=== PATIENT | male | born 1975 | race African-American/Black ===

== ENCOUNTER 2024-11-28 19:00 | Inpatient (IN) | payer BC, OTHER ==
[~2024-11-28] VITALS: Ht 190.5 cm; Wt 139.7 kg
[2024-11-28 19:33] LABS: MEAN PLATELET VOLUME 7.9 FL (7.4-10.4); RED CELL DISTRIBUTION WIDTH 15.1 % (11.5-14.5)
--- NOTE | 2024-11-28 19:39 | Physician Documentation ---
History of Present Illness ~ General Chief Complaint: Multiple Medical Complaints Stated Complaint: HEADACHE,LEG SWELLING Time Seen by MD: 20:52 OK to notify your PCP?: Yes Source: patient, RN/MD, RN notes reviewed, old records Mode of Arrival: POV History of Present Illness Initial Comments This is a 49-year-old male with history of migraines who presents with one-week of persistent headache, new and increasing lower extremity swelling, and development of rash to his lower extremities today. This patient was brought into bed 12. Patient thank you for that is efforts helping RRR I finding calm down one of the other two any ideas of the fire any patient states he has been having multiple were ablated instead has been weird. About five six days he has been having severe headache. 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 Denies any COVID symptoms other than the headache. Also in the last five six days he is having worsening lower extremity edema. Denies any PND or orthopnea no shortness of breath. Then in the last 12 hours he developed some nodules nontender blotching to the lower extremity in a few locations. Nonblanching no petechiae. But what brought him in was he felt weird at 3:00 p.m. today after work. This was at rest. He has a heaviness or pressure nonradiating decided to come in for evaluation. He has had a cardiac catheterization in February 2024 back [place] when he had a cardiac event. It was unclear. He has hypertension treated with hydralazine otherwise no other cardiac events. His pain is heaviness it is 6/7 out of 10 there was dizziness or diaphoresis. He now states his mostly resolved. Past medical history hypertension hydrocephalus congenital, brain bleed secondary to trauma in 11/2015, chronic renal insufficiency Past surgical history, bilateral knee surgery meniscus repairs, wisdom teeth, lipoma, Social history denies tobacco alcohol or recreational drugs, On a sodium restricted diet to help with leg swelling Medication Reconciliation Allergies: Uncoded Allergies: NSAIDS (Allergy, Unknown, 11/28/24) Scheduled Hydralazine Hcl* (Apresoline*), 25 MG PO Q6H, (Reported) Solifenacin Succinate (Vesicare), 1 TAB PO DAILY, (Reported) Scheduled PRN Acetaminophen (Tylenol), 1-2 TAB PO QID PRN PRN for pain or fever, (Reported) Discontinued Medications Hydralazine Hcl* (Apresoline*), 25 MG PO Q6H, (Reported) Discontinued Reason: Other Review of Systems All Other Systems at this time: Reviewed and Negative ROS As stated above in the HPI, otherwise all systems are reviewed and negative. Physical Exam Physical Exam Vital Signs: RN Vital Signs have been reviewed: Yes, Temperature: 98.2, Heart Rate: 86, Respiratory Rate: 16, BP: 172/111, Pulse Oximetry: 97 Oxygen Flow Rate: 0 Physical Exam VITALS: Reviewed and as above. GENERAL: Alert, nontoxic appearing, no apparent distress. HEENT: RESPIRATORY: No increased work of breathing, no respiratory distress, speaking in full clear sentences General: The patient is well developed, well nourished, nontoxic appearing and is in no acute distress. Uncomfortable appearing Skin: [place], warm and dry small circular nonblanching nontender lesions in the dependent extremities bilaterally three or four lesions per leg. Red erythematous. HEENT: Head was normocephalic and atraumatic. Eyes - pupils equal, round, madelyn ctive to light and accommodation. Extraocular movements were intact. Conjunctivae were nonicteric. The mouth and oropharynx were clear with moist mucous membranes. Neck: Supple and nontender. There was no jugular venous distention, lymphadenopathy, thyromegaly Chest: Clear to auscultation bilaterally without wheezes, rales or rhonchi. No accessory muscle use. Heart: Rate regular and rhythmic. S1, S2. No murmurs. Palpation of the chest wall was normal. Abdomen: Soft, nontender and nondistended. Positive bowel sounds. No guarding or rebound. Extremities: No cyanosis, clubbing or edema. The patient moves all extremities. Pulses were equal and symmetric. Neurologic: Motor sensory grossly intact Psychologic: The patient was oriented to person, place and time. The patient demonstrated appropriate judgement and insight. Progress Progress Note 10:45 p.m. discussed the case with the hospitalist. They recommended blue daina consultation, neurosurgical consultation They were informed that the findings are chronic although he does have a new onset headache for the last five days. There was no intracranial bleeds. Prior studies from [place] reviewed and are unchanged per report but there was no dire ct comparison. Neurosurgical consultation is not indicated at this time. Patient was started on a heparin drip. Results/Orders Reviewed/noted all lab results: Yes Results/Orders Orders - ABRAHAM PATTON MD Chest,Single View (11/28/24 19:45) Monitor (11/28/24 19:12) Saline Lock (11/28/24 19:12) Oxygen (11/28/24 19:12) BMP (11/28/24 19:12) PBNP (11/28/24 19:12) Electrocardiogram (11/28/24 19:12) Ct Head (11/28/24 21:05) Covid19 Binax Poc Result Entry (11/28/24 21:07) Please Get Medical Records (11/28/24 21:24) C-Reactive Protein (11/28/24 19:20) MG (11/28/24 19:20) Page Hospitalist (11/28/24 22:25) Fill Out Med Reconciliation (11/28/24 22:25) Carvedilol Tablet (Coreg Tablet) (11/28/24 22:35) Sundance Prov.Neuro Consult (11/28/24 22:35) Normal Saline 1000ml (0.9% Sodium Chlori (11/28/24 22:45) Hgb A1c (11/28/24 19:20) Completed Orders - ABRAHAM PATTON MD Chest,Single View (11/28/24 19:45) Cbc/Diff (11/28/24 19:12) Hs Troponin I W Calculations (11/28/24 19:12) Hs Troponin I W Calculations (11/28/24 21:12) Hs Troponin I W Calculations (11/28/24 22:12) Pt Inr (11/28/24 21:02) PTT (11/28/24 21:02) Aspirin 81mg Chew Tablet (Aspirin 81mg C (11/28/24 21:05) Nitroglycerin 0.4mg/Hr Patch (Nitro-Dur (11/28/24 21:05) Ct Head (11/28/24 21:05) Procalcitonin (11/28/24 21:05) ESR (11/28/24 21:05) Normal Saline 1000ml (0.9% Sodium Chlori (11/28/24 22:45) Medications Received in ER Medications (Trade) Dose Ordered Sig/Stephanie Route PRN Reason Start Time Stop Time Status Last Admin Dose Admin (aspirin 81MG chew tablet) 324 mg ONCE ONCE PO 11/28/24 21:05 11/28/24 21:06 DC 11/28/24 21:09 324 MG (Nitro-Dur 0.4mg/ hour Patch) 1 patch ONCE ONCE TD 11/28/24 21:05 11/28/24 21:06 DC 11/28/24 21:15 1 PATCH (Coreg tablet) 3.125 mg ONCE PO 11/28/24 22:35 11/28/24 23:03 3.125 MG (0.9% sodium chloride (NS) 1000ml IV soln) 500 ml ONCE ONCE IVB 11/28/24 22:45 11/28/24 22:46 DC 11/28/24 23:10 500 ML Sodium Chloride 1,000 ml @ 150 mls/hr Q6H40M ONCE IV 11/28/24 22:45 11/29/24 05:24 11/28/24 23:05 150 MLS/HR Vital Signs 11/28/24 11/28/24 11/28/24 11/28/24 19:07 20:55 20:55 22:06 Temp 98.2 98.2 Pulse 86 76 75 Resp 16 13 11 17 B/P (MAP) 172/111 162/98 (119) 152/98 (116) Pulse Ox 97 98 O2 Flow Rate 0 0 11/28/24 23:21 Temp 98.2 Pulse 66 Resp 12 B/P (MAP) 134/94 (107) Pulse Ox 96 O2 Flow Rate 0 Laboratory Tests Test 11/28/24 19:20 11/28/24 21:11 11/28/24 21:28 11/28/24 22:28 White Blood Count 7.9 Red Blood Count 4.99 Hemoglobin 15.1 Hematocrit 45.1 Mean Corpuscular Volume 90.3 Mean Corpuscular Hemoglobin 30.3 Mean Corpuscular Hemoglobin Concent 33.6 Red Cell Distribution Width 15.1 H Platelet Count 394 Mean Platelet Volume 7.9 Neutrophils (%) (Auto) 65.2 Lymphocytes (%) (Auto) 24.7 Monocytes (%) (Auto) 8.5 Eosinophils (%) (Auto) 1.0 Basophils (%) (Auto) 0.6 Neutrophils # (Auto) 5.2 Lymphocytes # (Auto) 2.0 Monocytes # (Auto) 0.7 Eosinophils # (Auto) 0.1 Basophils # (Auto) 0.1 CBC Comment Prothrombin Time 10.7 INR International Normalized Ratio 1.0 Activated Partial Thromboplast Time 29 Coagulation Comments Sodium Level 142 Potassium Level 3.8 Chloride Level 108 H Carbon Dioxide Level 30.1 Anion Gap 4 L Blood Urea Nitrogen 15 Creatinine 1.20 H Estimated GFR/1.73 m2 65 BUN/Creatinine Ratio 12.5 Glucose Level 105 H Calcium Level 9.3 Magnesium Level 2.0 Troponin I High Sensitivity 357 *H 375 *H 352 *H C-Reactive Protein 0.21 Pro-B-Type Natriuretic Peptide < 30 Albumin 3.7 Procalcitonin < 0.05 Chemistry Comments SARS-CoV-2 Antigen (Rapid) Negative Erythrocyte Sedimentation Rate 3 Troponin I High Sens Percent Delta 5 6 Troponin I Hi Sens Absolute Change 18 -23 Re-Evaluation Re-Evaluation : Re-Evaluation: Improved Progress Patient was seen and examined. Patient is given reassurance. Patient had a CT scan of the head which showed no new findings firm CT report the has at bedside. Cath reports has been requested but also at bedside per . Patient's blood pressure was treated with nitroglycerin. Laboratory work shows a normal CBC normal sed rate. Patient had some lesions on the leg which were unusual etiology unclear. Coagulation within normal limits. Patient's creatinine is slightly elevated at 1.20 will be hydrated. Troponins 357 and 375 patient is started on a heparin drip given aspirin. Patient's headache with the aspirin has subsided significantly. COVID is negative. Patient's blood pressure is also slightly improved. Chest x-ray shows no cardiomegaly. Patient's proBNP is negative. senior data scientist continuous monitor interpretation shows normal sinus rhythm, heart rate 80s, no ectopy, normal, my interpretation. Pulse oximetry monitor interpretation shows normal oxygenation at 98% room air, normal, my interpretation. EKG/XRAY/CT/US/VASC/MRI EKG : Intepreting Monitor?: Yes Additional Comment 7:16 p.m. EKG shows normal sinus rhythm heart rate 82 with good R-wave progression normal axis normal intervals nonspecific ST changes QTC 438 Chest X-Ray : Interpreted By: both Additional Comments CHEST RADIOGRAPH Indication: CP Technique: Single frontal view of the chest was obtained Comparison: None FINDINGS: Lines and Tubes: None Lungs: No focal consolidation. Pleura: No effusion. No pneumothorax. Cardiomediastinal contours: Unremarkable Bones: No acute osseous abnormality. IMPRESSION: No acute cardiopulmonary disease. Electronically Signed by:UMA CARLOS DO CT : CT: head With Contrast?: No Impression Procedure: CT CT HEAD [facility] Study Date and Requested Time: 11/28/2024 09:27 PM History: aloc Comparison: None Dose: CTDI: 65.75 mGy DLP: 1272.96 mGycm Technique: Multiplanar images obtained through the brain without intravenous contrast. Findings: Severe hydrocephalus with dilatation of the lateral and 3rd ventricles and normal 4th ventricle. No pineal region mass is noted. Postsurgical changes of endoscopic 3rd ventriculostomy is noted. No obvious subependymal edema is noted on CT. No hemorrhages, masses, midline shift, herniation or cytotoxic edema following a large vascular territory. No intra-axial or extra-axial fluid collections. There is remodeling of the sella with normal pituitary gland noted.. The cerebellar tonsils are in normal position. The cerebellum is unremarkable. The orbits and globes are unremarkable. Mucoperiosteal thickening of the right maxillary sinus. Otherwise, the paranasal sinuses and mastoids are clear. There are no worrisome calvarial lesions. Impression: Severe noncommunicating hydrocephalus with dilatation of the lateral and 3rd ventricles and Postsurgical changes of endoscopic 3rd ventriculostomy. No obvious subependymal edema on CT. No prior imaging for comparison. MRI should be considered for further evaluation. Electronically Signed by:UMA CARLOS DO Date & Time: 11/28/242153 Heart Score: Heart Score Response (Comments) Value History Slightly Suspicious 0 EKG Repolarization Disturb 1 Age 45-64 1 Risk Factors >3 or Hx ASHD 2 Troponin >3 x's Normal limit 2 Total 6 Medical Decision Making Findings MSE performed in triage and patient returned to ED lobby by nursing staff to await available ED room Departure Disposition: ADMITTED INPATIENT Admitted to Inpatient Unit: yes, to hospitalist Admission Level of Care: PCU with Tele Impression: Primary Impression: NSTEMI (non-ST elevated myocardial infarction) Additional Impression: Congenital hydrocephalus Condition: Guarded Referrals: NO PRIMARY CARE PROVIDER (PCP) Education Educated: Patient, Family Educated regarding: diagnosis, need for follow up Additional Comment Additional Comment CT scan 12/09/2015, 12/01/2015, 11/30/2015 Last CAT scan shows severe ventriculomegaly is again seen compatible with hydrocephalus and is unchanged extracranial structures remained normal Ramona Ely Signature Scribe Signature: x Attestation: The note accurately reflects work and decisions made by me.Abraham Patton MD 11/28/24 22:30 Addendum 2349: Attending physician, Dr. Patton spoke to [facility]; patient's code for staying here in the hospital is [phone]. Also found that in 2020 patient had a cardiac catheterization which showed 20% occlusion, but was otherwise normal. Patient also had echocardiogram which showed 30% LVEF. Studies are at the bedside and being sent. Scribed for Abraham Patton MD by Veronica Burgess. 11/28/24 23:56 SHABANA JOLLEY Nov 28, 2024 19:39 ABRAHAM PATTON MD Nov 28, 2024 21:07
--- NOTE | 2024-11-28 19:54 | RADIOLOGY REPORT ---
CHEST RADIOGRAPH Indication: CP Technique: Single frontal view of the chest was obtained Comparison: None FINDINGS: Lines and Tubes: None Lungs: No focal consolidation. Pleura: No effusion. No pneumothorax. Cardiomediastinal contours: Unremarkable Bones: No acute osseous abnormality. IMPRESSION: No acute cardiopulmonary disease.
[2024-11-28 19:55] LABS: CREATININE 1.20 MG/DL (0.60-1.10); PRO BRAIN NATRIURETIC PEPTIDE < 30 PG/ML (0-125); TOTAL CARBON DIOXIDE 30.1 MMOL/L (24-32); eGFR 65 ML/MIN
[2024-11-28 21:46] LABS: APTT 29 SECONDS (22-32); INR 1.0 INR
--- NOTE | 2024-11-28 21:56 | RADIOLOGY REPORT ---
Procedure: CT CT HEAD [facility] Study Date and Requested Time: 11/28/2024 09:27 PM History: aloc Comparison: None Dose: CTDI: 65.75 mGy DLP: 1272.96 mGycm Technique: Multiplanar images obtained through the brain without intravenous contrast. Findings: Severe hydrocephalus with dilatation of the lateral and 3rd ventricles and normal 4th ventricle. No p ineal region mass is noted. Postsurgical changes of endoscopic 3rd ventriculostomy is noted. No obvi ous subependymal edema is noted on CT. No hemorrhages, masses, midline shift, herniation or cytotoxic edema following a large vascular terr itory. No intra-axial or extra-axial fluid collections. There is remodeling of the sella with normal pituitary gland noted.. The cerebellar tonsils are in no rmal position. The cerebellum is unremarkable. The orbits and globes are unremarkable. Mucoperiosteal thickening of the right maxillary sinus. Othe rwise, the paranasal sinuses and mastoids are clear. There are no worrisome calvarial lesions. Impression: Severe noncommunicating hydrocephalus with dilatation of the lateral and 3rd ventricles and Postsurgi missy changes of endoscopic 3rd ventriculostomy. No obvious subependymal edema on CT. No prior imaging for comparison. MRI should be considered for further evaluation.
[2024-11-28] MEDS ORDERED: SOLI10TA2 PO (22:36)
[2024-11-28] MEDS ORDERED: HYDR25TA90 PO (22:36)
[2024-11-28] MEDS ORDERED: ACET-2119 PO (22:36)
[2024-11-28] MEDS: normal saline 1000ml 1,000 ML IV ONE (23:05)
[2024-11-28] MEDS: normal saline 1000ML IV soln IVB ONE (23:10)
[2024-11-28] MEDS ORDERED: potassium Cl 20 mEq SR tablet PO PRN (23:35)
[2024-11-28] MEDS ORDERED: magnesium hydroxide 30ml (MOM) UD suspension PO PRN (23:35)
[2024-11-28] MEDS ORDERED: magnesium sulf-water 4G/100mL 100 ML IV PRN (23:35)
[2024-11-28] MEDS ORDERED: potassium Cl 40MEQ/1/2NS 520ml 520 ML IV PRN (23:35)
[2024-11-28] MEDS ORDERED: mag hydrox/Alum hydrox/simeth 30ml oral suspension PO PRN (23:35)
[2024-11-28] MEDS ORDERED: magnesium Cl slow-release 64mg tablet PO PRN (23:35)
[2024-11-28] MEDS ORDERED: magnesium sulf-water 2g/50mL 50 ML IV PRN (23:35)
[2024-11-28] MEDS ORDERED: ondansetron/PF 4mg/2ml inj IV PRN (23:35)
--- NOTE | 2024-11-28 23:41 | [facility] CONSULT REPORT ---
[facility] Procedure Note [facility] Procedure Note Consult [facility] # Demographics Consult Type: General Neurology Patient Location: Emergency Room First Name: ALEXANDER Last Name: [facility] Date of : 1975 Age: 49 Gender: Male Facility: [facility] Time of Initial Page (): 11/28/2024 23:03 First Contact with Site (): 11/28/2024 23:04 # HPI Chief Complaint: - headache History: 49 yo with congenital hydrocephalus and migraine p/w persistent headache and leg swelling. He reported headache is frontal throbbing and pressure likely. He had similar bouts of headache previously and was seen at . He was told this is related to his hydrocephalus. He denied photophobia or nausea. SBP>200. # Exam Mental Status: - awake - alert and oriented x 3 - follows commands Language: - normal speech - no aphasia - no dysarthria Cranial Nerves: - extra ocular movements intact - no facial droop - normal facial sensation Motor: - normal strength - normal bulk - no drift Sensory: - normal sensation Cerebellar: - normal cerebellar exam # ROS Additional: - complete review of systems otherwise negative # PMH-- Past Medical History: - hypertension - chronic kidney disease # Data Head CT: Dilated 3rd and lateral ventricles # Assessment Impression: - pressure headache 2/2 hydrocephalus vs HTN # Plan Imaging: (urgency: routine): - MRI Brain with AND without contrast Medication: Naproxen 500 mg TID prn Other: - If patient has any neurological deterioration please call me back immediately - I have discussed my recommendations with the referring provider - Compare prior CT and MRI from OSH by radiology, if hydrocephalus is worse, then need neurosurgery consult # Logistics Attestation of consult completion: The patient is located at: [facility]. Facility staff participated in the visit. I performed this telemedicine visit from my offsite office utilizing interactive 2 way audio and visual telecommunication technology at the request of the onsite emergency room provider. Total time spent in telemedicine encounter: I spent 21 minutes reviewing clinical data and/or imaging, obtaining history, examining the patient, communicating with the onsite care team, and in preparation of this report. # Demographics First Name: ALEXANDER Last Name: [facility] Facility: [facility] Electronically signed at 11/28/2024 23:40 () by Neo Way MD Neuro Consult Order placed for: Yes NEO WAY MD Nov 28, 2024 23:41
[2024-11-28] MEDS: HEPARIN DRIP-CARDIAC**PHARMACIST-TO-DOSE IV ONE (23:45)
--- NOTE | 2024-11-28 23:54 | HISTORY AND PHYSICAL-Residence ---
History & Physical Providers to CC Resident Creating Document: SHARI MACKEY, RES ~ History of Present Illness Reason for Admit\Complaint: Elevated troponins History of Present Illness This is a 49-year-old with history of congenital hydrocephalus, migraine, CAD, hypertension, CKD, sleep apnea, came to the ER with a chief complaint of b ilateral lower extremity edema which started about one week ago, slowly progressive. Also has circular rate color blotches on Lovenox which were noticed today by his . Denied any shortness of breath, orthopnea, paroxysmal nocturnal dyspnea. After he got off work at 3:00 p.m. today, he felt something weird in his chest, something pressure-like, nonradiating. Denied any palpitations, lightheadedness or diaphoresis. He had a cardiac catheterization in February 2024 in [facility] in [place] by Dr. Frederick, no stents were placed at that time. He also has been having headache for the last one week, was taking Tylenol and NSAID. Denies any nausea, vomiting, blurry vision, chest pain, decreased urine output. He has history of congenital hydrocephalus, CT head showed severe hydrocephalus, I reviewed the CT head reports in 2022 which showed similar findings. The patient's neurologist did not recommend a shunt as it is chronic. 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 Migraines Hypertension Past Surgical History Surgical History Comment Bilaterally surgery, meniscal repair Lipoma removal on back Past Social History Social History Comment Denies any history of smoking Occasional alcohol use No drug use Lives with his Works as a security in [employer] ROS All Other Systems: Reviewed and Negative Constitutional: Denies: no symptoms reported, see HPI, chills, diaphoresis, fever, malaise, weakness, other Eyes: Denies: no symptoms reported, see HPI, pain, discharge, blurred vision, double vision, itching, photophobia, redness, tearing, other ENT: Denies: no symptoms reported, see HPI, ear pain, ear bleeding, ear discharge, hearing loss, ear ringing, nose pain, nose bleeding, nose congestion, nose discharge, throat pain, throat swelling, voice change, mouth pain, mouth bleeding, mouth swelling, other Respiratory: Denies: no symptoms reported, see HPI, cough, orthopnea, shortness of breath, SOB with exertion, SOB at rest, stridor, wheezing, hemoptysis, pain with breathing, other Cardiovascular: Reports: see HPI Gastrointestinal: Denies: no symptoms reported, see HPI, abdomen distended, abdominal pain, nausea, vomiting, diarrhea, constipated, melena, hematemesis, hematochezia, rectal bleeding, rectal pain, dysphagia, poor appetite, poor fluid intake, other Genitourinary: Denies: no symptoms reported, see HPI, burning, discharge, dysuria, frequency, flank pain, hematuria, incontinence, pain, decreased urine output, urgency, other Neurological: Reports: headache Musculoskeletal: Denies: no symptoms reported, see HPI, pain, swelling, back pain, gout, joint pain, joint swelling, muscle pain, muscle swelling, muscle stiffness, neck pain, other Exam Vitals: Vital Signs Date Time Temp Pulse Resp B/P (MAP) Pulse Ox O2 Delivery O2 Flow Rate FiO2 11/28/24 23:21 98.2 66 12 134/94 (107) 96 0 General: General:, alert and awake, not in acute distress Head: Normocephalic, atraumatic Eyes: Pupils- 3mm, reacting to light, conjunctiva- anicteric Neck: Supple, no lymphadenopathy, no carotid bruit Respiratory: No use of accessory muscles of respiration, Bilateral normal vesicular breath sounds heard. No wheeze, rhochi or creps Cardiac: S1-S2 heard, rhythm regular, no murmur Abdomen: non distended, no tenderness, no organomegaly, bowel sounds - heard, \ Extremities: no clubbing, 2+ pedal edema, no deformities, peripheral pulses - 2+ Skin: warm and dry, no rash, no purpura, red circular blotches on the lower extremity, no purpura, nonblanching Neuro: Awake, alert, oriented, speech is normal Cranial nerve exam-normal visual field, normal extraocular movements, normal facial sensations and facial movements, normal hearing, uvula in midline, tongue protrusion and shoulder shrugging normal Strength-normal bulk, normal tone, bilateral upper and lower extremity 5/5, deep tendon reflexes-2, absent Babinski, absent pronator drift Cerebellar-normal finger-nose test Gait-normal Diagnostic Data Last Recorded Lab Results: 11/28/24191911/28/241919 Diagnostic Data: Laboratory Tests Test 11/28/24 19:20 Prothrombin Time 10.7 SECONDS (9.0-12.0) INR International Normalized Ratio 1.0 INR Activated Partial Thromboplast Time 29 SECONDS (22-32) Coagulation Comments Advance Care Planning Advanced Care plannin - 30 Minutes (I spent 17 minutes in discussing various resuscitate measures, the patient chose to be full code) Additional Plan Assessment This is a 49-year-old with history of congenital hydrocephalus, migraine, CAD, hypertension, CKD, sleep apnea, came to the ER with a chief complaint of b ilateral lower extremity edema which started about one week ago, slowly progressive. Also has a elevated troponins. Patient is being admitted for possible NSTEMI and possible CHF. Plan Troponinemia History of CAD Troponin trend 357, 375,[address]-T changes Received aspirin 324 in the ER, Started on aspirin 81 mg and atorvastatin 40 mg, carvedilol 3.125 b.i.d. daily He had a cardiac catheterization in February 2024, no stent was placed at the time Lexiscan ordered Consult cardiology morning Heart healthy diet Possible underlying CHF Patient has bilateral lower extremity edema ProBNP in the normal range Echo ordered Also ordered bilateral lower leg venous ultrasound. Lasix 20 mg IV daily History of congenital hydrocephalus Migraine CT head showed severe hydrocephalus, reviewed the CT from 2022 also showed similar findings Tele neuro consult daughter and place Tylenol PRN CKD stage 3 Creatinine 1.2, at baseline Continue to monitor Hypertension Blood pressure was elevated at the time of admission currently in the normal range Continue patient's home medication once the med rec is done Code status: Full code DVT prophylaxis: Heparin Diet: Heart healthy diet Line/tubes: Peripheral IV line Status: Guarded Shari mackey M.D PGY2 Plan reviewed with bedside team. Patient seen through remote audiovisual assessment through HIPAA compliant setup. All labs, flowsheets, and images reviewed Cumulative nonprocedural care time spent in directed patient care = 30 min Date of Service: Nov 28, 2024 Billing Provider: HENNA FLOWERS MD, PRAVAHIKA, RES Nov 28, 2024 23:54 HENNA FLOWERS MD Nov 29, 2024 06:14
[2024-11-29] VITALS (14 sets, daily range): BP systolic 102–146; BP diastolic 65–104; PULSE 65–91; RESP 11–18; TEMP 97.6–98.1; O2SAT 96–99
[2024-11-29] MEDS ORDERED: heparin 25,000 UNIT/250ml bag 250 ML IV PRN
[2024-11-29] MEDS ORDERED: heparin 10,000 units/1 ML INJ IV PRN
[2024-11-29] MEDS ORDERED: heparin 10,000 units/1 ML INJ IV ONE
[2024-11-29] MEDS ORDERED: aminophylline 250mg/10ml inj. IV PRN (00:15)
[2024-11-29] MEDS ORDERED: metoprolol tartrate 1mg/ml inj IV PRN (00:15)
[2024-11-29] MEDS: MESSAGE TO NURSING IV ONE (00:29)
[2024-11-29] MEDS: heparin, porcine 5000 units/ml vial SQ SCH (00:39)
[2024-11-29] MEDS: furosemide 10 MG/1 ML 10ml inj IV SCH (01:09)
[2024-11-29 06:28] LABS: MEAN PLATELET VOLUME 8.0 FL (7.4-10.4); RED CELL DISTRIBUTION WIDTH 15.0 % (11.5-14.5)
[2024-11-29 06:50] LABS: CHOL/HDL RATIO 3.0 (0.00-4.99); CREATININE 1.31 MG/DL (0.60-1.10); LDL CHOLESTEROL 73 MG/DL (50-100); TOTAL CARBON DIOXIDE 27.7 MMOL/L (24-32); eCRCL 83 ML/MIN; eGFR 71 ML/MIN
--- NOTE | 2024-11-29 06:50 | ELECTROCARDIOGRAPH REPORT ---
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 Abraham Barrera Measurements Intervals [place] Rate: 82 P: 42 SD: 163 QRS: 9 QRSD: 96 T: 42 QT: 375 QTc: 438 Interpretive Statements Sinus rhythm Borderline T wave abnormalities Electronically Signed On 11-30-2024 0:29:[address] Abraham Barrera Please click the below link to view image of tracing.
[2024-11-29] MEDS: K and/or MAG REPLACEMENT MC SCH (08:00)
[2024-11-29] MEDS: regadenoson 0.4mg/5ml syringe IV PRN (09:10)
[2024-11-29] MEDS: aspirin 81mg, enteric-coated 1 TAB TABLET.DR PO SCH (10:15)
[2024-11-29] MEDS: docusate sod 100mg capsule PO SCH (10:15)
--- NOTE | 2024-11-29 10:29 | RADIOLOGY REPORT ---
Reason for study/Clinical History: possible NSTEMI Comparison Study: None Myocardial Perfusion Study with SPECT Technique: The patient received an intravenous injection of 8.8 mCi of technetium-99m Sestamibi whi faye at rest. After a short delay, SPECT tomographic images of the heart were obtained. The patient yesenia ocampo went to the stress lab where they received an intravenous Lexiscan utilizing standard protocol. 35.2 mCi of technetium-99m Sestamibi was injected intravenously immediately after the start of the infusion. Gated SPECT tomographic images of the heart were acquired and processed. Findings: Rotating planar images show no significant attenuation artifact. The left ventricular size is within normal limits. Non reversible defect is present in the inferior wall. Gated portion of the study shows no myocardial thickening. The left ventricular ejection fraction is 48 %. (normal greater than 50%) Impression: Non reversible defect is present in the inferior wall which may represent chronic infarcted tissue. No findings of reversibility to suggest acute ischemia. Left ventricular ejection fraction is 48%.
--- NOTE | 2024-11-29 12:56 | VASCULAR REPORT ---
Bilateral lower extremity venous duplex Clinical History: edema Comparison: None Technique: Duplex Doppler evaluation of the deep venous systems of both lower extremities from the common femora l veins to the popliteal veins including color Doppler and spectral/pulsed waveform analysis was perf ormed. Findings: RIGHT SIDE: The common femoral vein demonstrates appropriate compressibility and waveform variability. There is compressibility/patency of the great saphenous vein at the proximal thigh. The femoral vein demonstrates appropriate compressibility and waveform variability. The deep femoral vein demonstrates appropriate compressibility and waveform variability. The popliteal vein demonstrates appropriate compressibility and waveform variability. There is normal compressibility at the tibioperoneal trunk. LEFT SIDE: The common femoral vein demonstrates appropriate compressibility and waveform variability. There is compressibility/patency of the great saphenous vein at the proximal thigh. The femoral vein demonstrates appropriate compressibility and waveform variability. The deep femoral vein demonstrates appropriate compressibility and waveform variability. The popliteal vein demonstrates appropriate compressibility and waveform variability. There is normal compressibility at the tibioperoneal trunk. Impression: No right or left femoropopliteal venous thrombosis.
--- NOTE | 2024-11-29 19:20 | PROGRESS NOTE- Residence ---
Progress Note - Resident Providers to CC Resident Creating Document: REJI CASTRO RES CC: KELLY FRY MD ~ Antibiotic Timeout Antibiotic Ordered?: No Subjective Patient was examined and seen at bedside, he reports that his bilateral leg swelling has improved,He denies chest pain, nausea , vomitting but reports headache. In addition to that his told that in ER blood pressure went upto 221/111. Objective Vital Signs Date Time Temp Pulse Resp B/P (MAP) Pulse Ox O2 Delivery O2 Flow Rate FiO2 11/29/24 15:56 97.9 74 17 140/65 (90) 96 Room Air 11/29/24 07:30 0.0 Result Diagram: 11/29/2460311/29/24 06 General: awake, alert oriented to place, time, and person HEENT: No pallor present, no icterus, moist mucous membranes Neck: No masses and tenderness Resp: Unlabored. Lungs clear to auscultation bilaterally. Chest: Normal expansion. Cardiovascular: Regular Rate and rhythm, normal S1 and S2 without murmur, rub or gallop Abdomen: Soft and mildly tender in epigastrium, no organomegaly, no guarding and rigidity, bowel sounds present Neuro: No focal weakness in the upper and lower limb muscles, power of the muscles 5/5 bilateral upper and lower extremities, normal reflexes bilaterally. Cranial nerves intact MusculoSkeletal: No arthalgia or myalgia Upper Extremities: No cyanosis, clubbing or edeme Lower ExtremitiesExtremities: Bilateral lower extremities swelling improving. Skin: Warm and Dry,Red circular blotches on the lower extremities. Psych: Normal affect Coagulation Studies Laboratory Tests Test 11/28/24 19:20 Prothrombin Time 10.7 SECONDS (9.0-12.0) INR International Normalized Ratio 1.0 INR Activated Partial Thromboplast Time 29 SECONDS (22-32) Coagulation Comments Plan Plan This is a 49-year-old with history of congenital hydrocephalus, migraine, CAD, hypertension, CKD, sleep apnea, came to the ER with a chief complaint of bilateral lower extremity edema which started about one week ago, slowly progressive. Also has a elevated troponins. Patient is being admitted for possible NSTEMI and possible CHF. Plan Troponemia 2/2 Type 2 ND History of CAD Troponin downtrending EKG showed no ST-T changes Received aspirin 324 in the ER Started on aspirin 81 mg and atorvastatin 40 mg, carvedilol 3.125 b.i.d. daily He had a cardiac catheterization in February 2024, no stent was placed at the time Lexiscan shows: Non reversible defect is present in the inferior wall which may represent chronic infarcted tissue.No findings of reversibility to suggest acute ischemia. Heart healthy diet. Bilateral Lower Extremity Edema CHF ruled out and DVT ruled out Patient had bilateral lower extremity edema which improved with 2 doses of iv lasix only. No symptoms of heart failure including crackles and shortness of breath. Bilateral lower extremity edema likely due to gravitational. ProBNP in the normal range Echo shows LVEF is 60-65%. Dced Lasix Vascular US: No right or left femoropopliteal venous thrombosis. Hypertensive emergency Blood pressure was elevated in ER went upto 221/111 Continue Coreg 3.125 Started patient today on Chlorthalidone PO 12.5 mg Held Hydrazlaine. History of congenital hydrocephalus Migraine CT head showed severe hydrocephalus, reviewed the CT from 2022 also showed similar findings Tele neuro consulted recommended MRI Brain and compare previous imaging if hydrocephalus worsening consult neurosurgery. Tylenol PRN, Will repeat CT head Acute on Chronic Kidney Injury Baseline unknown Creatinine trended upward from 1.2 to 1.3 Monitor CMP. Code status: Full code DVT prophylaxis: Heparin Diet: Heart healthy diet Line/tubes: Peripheral IV line Status: Guarded Disposition: Continue monitoring patient in PCU, monitor blood pressure, will likely be discharge tomorrow. Date of Service: Nov 29, 2024 Billing Provider: KELLY FRY MD, SANJAY, RES Nov 29, 2024 19:20 PATEL HAYNES, RES Dec 03, 2024 09:19
--- NOTE | 2024-11-29 19:28 | CARDIOLOGY REPORT ---
APPROVED REPORT EXAM: Comprehensive 2D, Doppler, and color-flow Echocardiogram. 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 169.0 cm/s AoV VTI 28.4 cm AO Peak GR. 11.4 mmHg AO Mean GR. 6 mmHg LVOT VTI 26.47 cm LVOT Peak Vikas. 143.8 cm/s DREA(VTI)/BSA 3.45 cm2/m2 DREA (VTI) 3.45 cm2 Mitral Valve MV E Velocity 50.9 cm/s MV Peak Gr. 2 mmHg MV DECEL TIME 208 ms MV A Velocity 82.2 cm/s MV PHT 56 ms E/A Ratio 0.6 MVA (PHT) 3.93 cm2 MV VMax66.1 cm/s TDI Medial E' P. V 9.16 cm/s E/Medial E' 5.6 Tricuspid Valve RAP ESTIMATE 10 mmHg Pulmonary Vein S1 Velocity 52.9 cm/s D2 Velocity 36.3 cm/s PVa Oqwfqcqx93.2 cm/s PVa Fofwkynz94 msec LEFT VENTRICLE LV is normal in size with moderate concentric hypertrophy. Overall systolic function is normal. Overa ll LVEF is 60-65%. RIGHT VENTRICLE RV appears normal in size and contractility. ATRIA Left atrium is moderately dilated. AORTIC VALVE Trileaflet AV appears sclerotic without stenosis. No insufficiency. MITRAL VALVE MV is thickened with mild annular thickening and no stenosis. Trace mitral regurgitation. TRICUSPID VALVE The tricuspid valve is normal in structure. Trace tricuspid regurgitation. PULMONIC VALVE The pulmonary valve is normal in structure. Trace pulmonic regurgitation. GREAT VESSELS The aortic root is normal in size. The ascending aorta is normal in size. The IVC is normal in size a nd collapses >50% with inspiration. PERICARDIUM There is no pericardial effusion. Other Information Study Quality: Adequate Conclusion Overall LVEF is 60-65%. LV is normal in size with moderate concentric hypertrophy. Overall systolic function is normal. RV appears normal in size and contractility. Trileaflet AV appears sclerotic without stenosis. No insufficiency. Trace mitral regurgitation. Trace tricuspid regurgitation. Trace pulmonic regurgitation. There is no pericardial effusion.
[2024-11-30 02:00] VITALS: BP 154/85; PULSE 78; RESP 14; TEMP 97.5; O2SAT 97
[2024-11-30 06:00] VITALS: BP 132/80; PULSE 68; RESP 18; TEMP 97.6; O2SAT 99
[2024-11-30 07:35] LABS: MEAN PLATELET VOLUME 8.1 FL (7.4-10.4); RED CELL DISTRIBUTION WIDTH 14.9 % (11.5-14.5)
[2024-11-30 08:00] VITALS: RESP 18; O2SAT 99
[2024-11-30 08:00] LABS: CREATININE 1.33 MG/DL (0.60-1.10); TOTAL CARBON DIOXIDE 27.8 MMOL/L (24-32); eCRCL 82 ML/MIN; eGFR 70 ML/MIN
[2024-11-30] MEDS: SOLIFENACIN 10 MG PO SCH (08:00)
[2024-11-30] MEDS: potassium Cl 20 mEq SR tablet PO PRN (09:20)
[2024-11-30] MEDS: HYDROcodone/acetaminophen 5mg/325mg tablet PO PRN (09:27)
[2024-11-30 11:00] VITALS: BP 143/96; PULSE 80; RESP 20; TEMP 98.4; O2SAT 97
--- NOTE | 2024-11-30 12:46 | RADIOLOGY REPORT ---
CT CT HEAD Indication: HYDROCEPHALUS EXAM DATE: 11/30/2024 11:22 AM COMPARISON: CT CT HEAD on DOS: 11/28/24 TECHNIQUE: CT of the head without intravenous contrast. RADIATION DOSE: CTDIvol: 58 mGy, DLP: 932 mGy*cm FINDINGS: There is no intracranial hemorrhage. There is no extra-axial fluid. The ventricles are severely enla rged most prominently involving the lateral and 3rd ventricles. There is mild crowding of the cerebra l sulci. Cisterns are patent. 4th ventricle appears normal in size. The paranasal sinuses and mastoids are well-pneumatized. Imaged portion of the orbits are unremarkabl e. IMPRESSION: Redemonstration of severe hydrocephalus involving the lateral and 3rd ventricles, similar to prior ex amination. Neurosurgical consultation recommended for further management. Mild crowding of the cerebral sulci, similar to previous examination.
[2024-11-30] MEDS ORDERED: ASPI-1071 PO (12:53)
[2024-11-30] MEDS ORDERED: AMLO5TAB16 PO (12:53)
[2024-11-30] MEDS ORDERED: ATOR20TA66 PO (12:53)
[2024-11-30] MEDS ORDERED: COR3.125T PO (12:53)
[2024-11-30] MEDS ORDERED: CHLO25TA11 PO (12:53)
--- NOTE | 2024-11-30 14:01 | DISCHARGE SUMMARY-Residence ---
Discharge Summary Providers to CC Resident Creating Document: REJI CASTRO RES CC: KELLY FRY MD ~ Discharge Summary Admission Diagnosis: Hypertensive Emergency Hospital Course DATE OF ADMISSION: 11/28/2024 DATE OF DISCHARGE: 11/30/2024 Discharge Diagnosis\Comment: Hypertensive Emergency CKD Congenital Hydrocephalus Type 2 [place] Operations\Procedures: Lexiscan Consultants: TeleNeurology consulted Complications: none Condition on DC: Stable New Medications: Amlodipine Besylate (Amlodipine Besylate) 5 Mg Tablet 1 TAB PO DAILY for 30 Days, #30 TAB 0 Refills Aspirin (Ecotrin*) 81 Mg Tablet.dr 1 TAB PO DAILY for 30 Days, #30 TAB.SR Atorvastatin Calcium (Atorvastatin Calcium) 20 Mg Tablet 40 MG PO DAILY for 30 Days, #30 TAB Carvedilol (Carvedilol) 3.125 Mg Tablet 3.125 MG PO BID for 30 Days, #60 TAB Chlorthalidone (Chlorthalidone) 25 Mg Tablet 25 MG PO DAILY for 30 Days, #30 TAB Continued Medications: Acetaminophen (Tylenol) 325 Mg Tablet 1-2 TAB PO QID PRN PRN for pain or fever for 7 Days, #60 TAB Solifenacin Succinate (Vesicare) 10 Mg Tablet 1 TAB PO DAILY for 30 Days, #30 TAB 0 Refills Discontinued Medications: Hydralazine Hcl* (Apresoline*) 25 Mg Tablet 25 MG PO Q6H, TAB Discharge Summary: Hospital Course This is 49 year old male with known history presented in ER with complaints of bilateral leg swelling since one week and chest discomfort, aspirin 324 mg was given in view of her chest discomfort and his troponins level were elevated tx 357, 375,352 which prompted us to do Lexiscan results discussed below, in view of her bilateral lower extremity edema lasix were admintersted and an echocardiogram was performed which revealed normal ejection fraction which was 60-65% , Vascular US was also performed which was negative for DVT, lower extremity swelling improved significantly after lasix. The patient was also noted to have an elevated blood pressure in the ER which went upto 221/111. His home antihypertensive regimen including hydralazine which was held and he was started on chlorthalidone 25 and carvedilol 3.25 during hospitalization with a marked improvement in his blood pressure. Apart from that he had history of congenital hydrocephalus, for which CT scan was performed results below and teleneuro was consulted who suggested MRI however MRI could not be done due to body habitus. Patient was medically stable for Discharge We have filled and signed form to return work on Wednesday11/04/2024. Labs Wbc: 5.9 Hgb: 15.4 Hct: 46.4 BUN 16 Creatinine 1.33 Na 140 K 3.7 Physical examination on Discharge General: awake, alert oriented to place, time, and person HEENT: No pallor present, no icterus, moist mucous membranes Neck: No masses and tenderness Resp: Unlabored. Lungs clear to auscultation bilaterally. Chest: Normal expansion. Cardiovascular: Regular Rate and rhythm, normal S1 and S2 without murmur, rub or gallop Abdomen: Soft and mildly tender in epigastrium, no organomegaly, no guarding and rigidity, bowel sounds present Neuro: No focal weakness in the upper and lower limb muscles, power of the muscles 5/5 bilateral upper and lower extremities, normal reflexes bilaterally. Cranial nerves intact MusculoSkeletal: No arthalgia or myalgia Upper Extremities: No cyanosis, clubbing or edema Lower Extremities: Trace Bilateral lower extremities swelling. Skin:warm and dry, no rash, no purpura, red circular blotches on the lower extremity, no purpura, nonblanching Psych: Normal affect Imaging CT Head: Redemonstration of severe hydrocephalus involving the lateral and 3rd ventricles, similar to prior examination. Neurosurgical consultation recommended for further management. Mild crowding of the cerebral sulci, similar to previous examination. Lexiscan: Non reversible defect is present in the inferior wall which may represent chronic infarcted tissue. No findings of reversibility to suggest acute ischemia. Echo: Overall LVEF is 60-65%. LV is normal in size with moderate concentric hypertrophy.Overall systolic function is normal.Trileaflet AV appears sclerotic without stenosis. No insufficiency. Vascular US: No right or left femoropopliteal venous thrombosis. Chest X-Ray: No acute cardiopulmonary disease. Discharge Instructions Stop taking hydralazine. Start taking chlorthalidone 25mg once daily and amlodipine 5 mg once daily for blood pressure treatment. Check you BP twice daily and the target BP is 120-140/70-90mmHg. Please visit ER if BP runs high or develop any other symptoms like headache or dizziness. Please f/u with your appointment at [facility] clinic. *Problems/Diagnosis: (1) Congenital hydrocephalus Status: Resolved Total Time Spent on D/C: > 30 Minutes Date of Service: Nov 30, 2024 Billing Provider: KELLY FRY MD, SANJAY, ISREAL Nov 30, 2024 14:01
[2024-11-30 16:00] VITALS: BP 151/91; PULSE 70; RESP 12; TEMP 97.6; O2SAT 98
== END 2024-11-30 18:07 | disposition home or self-care (01) | DRG 281 ==
LOC: ER 19:01 → ED HOLD 23:27 → EDBEDREQ 11-29 01:05 → PCU 3S 11-29 01:47
PROVIDERS: ADMIT Internal Medicine Sleep Medicine; ATTEND Family Medicine
PROC: 4A02XM4 Measurement of Cardiac Total Activity, External Approach (ICD-10-PCS; principal; 2024-11-29)
PROC: 3E033HZ Introduction of Radioactive Substance into Peripheral Vein, Percutaneous Approach (ICD-10-PCS; 2024-11-29)
DX: I16.1 Hypertensive emergency (principal); N17.9 Acute kidney failure, unspecified; I21.A1 Myocardial infarction type 2; I12.9 Hypertensive chronic kidney disease with stage 1 through stage 4 chronic kidney disease, or unspecified chronic kidney disease; N18.30 Chronic kidney disease, stage 3 unspecified; Z20.822 Contact with and (suspected) exposure to COVID-19; G43.909 Migraine, unspecified, not intractable, without status migrainosus; Q03.9 Congenital hydrocephalus, unspecified; Z86.73 Personal history of transient ischemic attack (TIA), and cerebral infarction without residual deficits
CPT/HCPCS: 36415; 70450; 71045; 78452; 80048; 80061; 83036; 83735; 83880; 84145; 84484; 85025; 85610; 85651; 85730; 86140; 87081; 87811; 93005; 93017; 93306; 93970; 96360; 99285; A9500; G0378; J1644; J1938; J2785; J7030

== ENCOUNTER 2025-02-12 09:02 | Emergency (ER) | payer BC, OTHER ==
[~2025-02-12] VITALS: Ht 188 cm; Wt 109.1 kg
[~2025-02-12 09:02] MED LIST: ACET-2119 PO; AMLO5TAB16 PO; ASPI-1071 PO; ATOR20TA66 PO; CHLO25TA11 PO; COR3.125T PO; SOLI10TA2 PO
[2025-02-12 09:13] VITALS: BP 158/112; PULSE 96; TEMP 98.5; O2SAT 99
--- NOTE | 2025-02-12 09:20 | Physician Documentation ---
History of Present Illness General Chief Complaint: Groin Pain Stated Complaint: WC TESTICULAR PAIN Time Seen by MD: 09:11 Medication Reconciliation Allergies: Uncoded Allergies: NSAIDS (Allergy, Unknown, 11/28/24) Scheduled Amlodipine Besylate (Amlodipine Besylate), 1 TAB PO DAILY Aspirin (Ecotrin*), 1 TAB PO DAILY Atorvastatin Calcium (Atorvastatin Calcium), 40 MG PO DAILY Carvedilol (Carvedilol), 3.125 MG PO BID Chlorthalidone (Chlorthalidone), 25 MG PO DAILY Solifenacin Succinate (Vesicare), 1 TAB PO DAILY, (Reported) Scheduled PRN Acetaminophen (Tylenol), 1-2 TAB PO QID PRN PRN for pain or fever, (Reported) Physical Exam Physical Exam Vital Signs: Temperature: 98.5, Source: Temporal, Heart Rate: 96, Respiratory Rate: 18, BP: 158/112, Pulse Oximetry: 99, Weight: 109.090 Oxygen Flow Rate: 0 Progress Results/Orders Results/Orders Vital Signs 02/12/25 09:13 Temp 98.5 Pulse 96 Resp 18 B/P (MAP) 158/112 Pulse Ox 99 O2 Flow Rate 0 Departure Referrals: NO PRIMARY CARE PROVIDER (PCP) LARA ANGELA MD Feb 12, 2025 09:20
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
[2025-02-12 10:09] VITALS: RESP 16
[2025-02-12] MEDS ORDERED: OXYC-150 PO (11:31)
--- NOTE | 2025-02-12 11:42 | RADIOLOGY REPORT ---
Indication: testicle trauma Technique: Real-time ultrasound images through the scrotum. Comparison: None Findings: Right testicle measures 3.7 x 2.3 x 2.7 cm. No mass identified. Microlithiasis. There is normal flow on color Doppler, with normal waveforms. The right epididymal head measures 1.0 cm, and has no focal masses. Left testicle measures 4.2 x 2.8 x 3.1 cm. No mass identified. Microlithiasis. There is normal flow on color Doppler, with normal waveforms. The left epididymal head measures 0.9 cm, and has a cyst measuring 5 mm. There is no hydrocele or varicocele on either side. Impression: No evidence for testicular fracture/scrotal hematoma. Bilateral testicular microlithiasis. Recommend urology consultation for further management. Left epididymal cyst measuring 5 mm.
== END 2025-02-12 12:01 | disposition home or self-care (01) ==
LOC: ER 09:03
DX: N50.819 Testicular pain, unspecified (principal); N50.82 Scrotal pain; I12.9 Hypertensive chronic kidney disease with stage 1 through stage 4 chronic kidney disease, or unspecified chronic kidney disease; N18.9 Chronic kidney disease, unspecified; I25.10 Atherosclerotic heart disease of native coronary artery without angina pectoris
CPT/HCPCS: 76870; 93976; 99284